=== PATIENT | male | born 1985 | race Caucasian/White ===

== ENCOUNTER 2022-11-22 22:39 | Emergency (ER) | payer BC ==
[~2022-11-22] VITALS: Ht 177.8 cm; Wt 77.1 kg
[2022-11-22 22:46] VITALS: BP_SYST 164; PULSE 70; RESP 16; TEMP 97.4; O2SAT 99
[2022-11-22] MEDS ORDERED: predniSONE 20 MG TABLET PO ONE (23:15)
[2022-11-22 23:46] LABS: INFLUENZA TYPE A negative (NEGATIVE); INFLUENZA TYPE B NEGATIVE (NEGATIVE)
[2022-11-23] MEDS ORDERED: GUAI120L56 PO (00:10)
[2022-11-23] MEDS ORDERED: NIRM1TAB PO (00:10)
[2022-11-23] MEDS ORDERED: IBUP-1969 PO (00:10)
[2022-11-23 00:12] LABS: STREPTOCOCCUS A SCREEN (RAPID) NEGATIVE (NEGATIVE)
[2022-11-23 00:20] VITALS: BP_SYST 162; PULSE 70; RESP 16; TEMP 97.4; O2SAT 99
== END 2022-11-23 00:20 | disposition home or self-care (01) ==
LOC: SED 22:39
DX: U07.1 COVID-19 (principal); R53.1 Weakness; J02.9 Acute pharyngitis, unspecified; M79.10 Myalgia, unspecified site; Z79.899 Other long term (current) drug therapy
CPT/HCPCS: 99283; 86403; 36415; 87081; 87804 ×2; J7512